=== PATIENT | female | born 1935 | race African-American/Black ===

== ENCOUNTER 2018-09-08 10:30 | Inpatient (IN) | payer MEDICARE, BC ==
[~2018-09-08] VITALS: Ht 167.6 cm; Wt 55.5 kg
[2018-09-08] MEDS ORDERED: ONDANSETRON HCL 4MG/2ML INJ IV STA (11:34)
[2018-09-08] MEDS ORDERED: SODIUM CHLORIDE 0.9% 1,000 ML IV ONE (11:34)
[2018-09-08 12:04] LABS: HEMATOCRIT. 21.1 % (36.0-48.0); MEAN CORPUSCULAR HEMOGLOBIN 25.2 pg (28.0-32.0); MEAN PLATELET VOLUME 6.8 fl (7.4-10.4); PLATELET 200 x1000/uL (130-400); RED BLOOD CELL COUNT 2.63 mill/uL (4.2-5.4); RED CELL DISTRIBUTION WIDTH 16.4 % (11.6-14.6)
[2018-09-08 12:07] LABS: HEMOGLOBIN. 6.6 g/dL (12.0-16.0)
[2018-09-08 12:11] LABS: PROTHROMBIN TIME 10.3 sec (9.1-11.1)
[2018-09-08 12:18] LABS: CHLORIDE 103 mEq/L (98-107)
[2018-09-08 12:34] LABS: NUCLEATED RED BLOOD CELLS 2 /100 WBC; PLATELET ESTIMATE NORMAL
[2018-09-08 13:53] LABS: CLARITY URINE CLEAR (CLEAR); COLOR URINE YELLOW (YELLOW); KETONES URINE NEGATIVE (NEGATIVE); LEUKOCYTE ESTERASE URINE NEGATIVE (NEGATIVE); NITRITE URINE NEGATIVE (NEGATIVE); OCCULT BLOOD URINE NEGATIVE (NEGATIVE); PH URINE 7.5 (4.5-8.0); PROTEIN URINE NEGATIVE (NEGATIVE); SPECIFIC GRAVITY URINE 1.011 (1.005-1.030); UROBILINOGEN URINE 0.2 E.U./dL (0.2-1.0)
[2018-09-08] MEDS ORDERED: FENTANYL CITRATE/PF 50MCG/ML 2ML VIAL IV NR (14:15)
[2018-09-08] MEDS ORDERED: SODIUM CHLORIDE 0.9% 1,000 ML IV SCH (17:26)
[2018-09-08] MEDS ORDERED: CLONIDINE 0.1MG TABLET PO PRN (17:30)
[2018-09-08] MEDS ORDERED: MAGNESIUM/ALUMINUM HYDROXIDE/SIMETHICONE 30ML UDC PO PRN (17:30)
[2018-09-08] MEDS ORDERED: HYDRALAZINE 20MG/ML VIAL IV PRN (17:30)
[2018-09-08] MEDS ORDERED: GUAIFENESIN 200MG/10ML SUGAR FREE UDC PO PRN (17:30)
[2018-09-08] MEDS ORDERED: DIPHENHYDRAMINE 50MG/ML VIAL IV PRN (17:30)
[2018-09-08] MEDS ORDERED: ONDANSETRON HCL 4MG/2ML INJ IV ONE (19:15)
[2018-09-08] MEDS ORDERED: FAMOTIDINE 20MG/2ML VIAL IV SCH (21:00)
[2018-09-09 05:11] LABS: BASOPHILS % 0.6 % (0.0-2.0); HEMATOCRIT. 23.7 % (36.0-48.0); HEMOGLOBIN. 7.8 g/dL (12.0-16.0); LYMPHOCYTES % 9.7 % (20.0-50.0); MEAN CORPUSCULAR HEMOGLOBIN 26.1 pg (28.0-32.0); MEAN CORPUSCULAR VOLUME 79.1 fL (81.0-99.0); MEAN PLATELET VOLUME 6.9 fl (7.4-10.4); MONOCYTES % 12.4 % (2.0-8.0); NEUTROPHILS % 77.3 % (40.0-76.0); PLATELET 181 x1000/uL (130-400); RED BLOOD CELL COUNT 2.99 mill/uL (4.2-5.4); RED CELL DISTRIBUTION WIDTH 15.7 % (11.6-14.6)
[2018-09-09 11:05] VITALS: BP 149/68
[2018-09-09 12:30] VITALS: BP 149/68
[2018-09-09] MEDS ORDERED: POTASSIUM CHLORIDE 20MEQ TABLET SR PO SCH (12:45)
[2018-09-09] MEDS ORDERED: IRON-1 MT (12:48)
[2018-09-09] MEDS ORDERED: CHOL50004 PO (12:51)
[2018-09-09] MEDS ORDERED: TRIA1TAB92 MT (12:51)
[2018-09-09] MEDS ORDERED: ASPI-864 PO (12:51)
[2018-09-09] MEDS ORDERED: ACET325C PO (12:51)
[2018-09-09] MEDS ORDERED: SODIUM CHLORIDE 0.9% 1,000 ML IV SCH (13:00)
[2018-09-09 13:44] LABS: PHOSPHORUS 3.6 mg/dL (2.5-4.9)
[2018-09-09] MEDS: FAMOTIDINE 20MG/2ML VIAL IV SCH (15:10)
[2018-09-09 16:00] VITALS: BP 172/58
[2018-09-09] MEDS ORDERED: TRAMADOL 50MG TABLET PO PRN (17:15)
[2018-09-09] MEDS: ACETAMINOPHEN 325MG TABLET PO PRN (17:39)
[2018-09-09] MEDS: FERROUS SULFATE 325MG TABLET PO SCH (17:39)
[2018-09-09] MEDS: HYDRALAZINE 20MG/ML VIAL IV PRN (17:40)
[2018-09-09 20:00] VITALS: BP 158/53
[2018-09-09] MEDS ORDERED: LORAZEPAM 2MG/ML CPJ IV PRN (21:00)
[2018-09-09] MEDS ORDERED: FAMOTIDINE 20MG/2ML VIAL IV SCH (21:00)
[2018-09-10] VITALS: BP 121/61
[2018-09-10 04:00] VITALS: BP 189/75
[2018-09-10] MEDS: HYDRALAZINE 20MG/ML VIAL IV PRN ×2 (04:15→12:26)
[2018-09-10] MEDS ORDERED: DILTIAZEM HCL 5MG/ML 5ML VIAL IV SCH (06:30)
[2018-09-10 06:45] LABS: CLARITY URINE CLEAR (CLEAR); COLOR URINE YELLOW (YELLOW); KETONES URINE NEGATIVE (NEGATIVE); LEUKOCYTE ESTERASE URINE 2+ (NEGATIVE); NITRITE URINE NEGATIVE (NEGATIVE); OCCULT BLOOD URINE NEGATIVE (NEGATIVE); PH URINE 6.5 (4.5-8.0); PROTEIN URINE 1+ (NEGATIVE)
[2018-09-10] MEDS ORDERED: ONDANSETRON HCL 4MG/2ML INJ IV PRN (07:15)
[2018-09-10 07:53] LABS: HEMATOCRIT. 28.3 % (36.0-48.0); MEAN CORPUSCULAR HEMOGLOBIN 25.4 pg (28.0-32.0); MEAN PLATELET VOLUME 7.8 fl (7.4-10.4); PLATELET 225 x1000/uL (130-400); RED BLOOD CELL COUNT 3.53 mill/uL (4.2-5.4); RED CELL DISTRIBUTION WIDTH 16.7 % (11.6-14.6)
[2018-09-10 08:00] VITALS: BP 173/75
[2018-09-10 08:13] LABS: T4 FREE 1.49 ng/dL (0.76-1.46)
[2018-09-10] MEDS ORDERED: METOPROLOL TARTRATE 50MG TABLET PO SCH (09:00)
[2018-09-10] MEDS: FERROUS SULFATE 325MG TABLET PO SCH ×3 (09:14→16:51)
[2018-09-10] MEDS: FAMOTIDINE 20MG/2ML VIAL IV SCH (09:14)
[2018-09-10] MEDS ORDERED: METOPROLOL TARTRATE 25MG TABLET PO NR (09:30)
[2018-09-10] MEDS ORDERED: POTASSIUM CHLORIDE INJ 40 MEQ in DEXT 5% WATER 250 ML IV SCH (10:00)
[2018-09-10 10:58] LABS: PLATELET ESTIMATE NORMAL
[2018-09-10 12:00] VITALS: BP 194/73
[2018-09-10] MEDS ORDERED: CEFTRIAXONE 1 G PREMIX 50 ML IV ONE (12:45)
[2018-09-10] MEDS: HYDRALAZINE HCL 50MG TABLET PO SCH ×2 (14:25→23:40)
[2018-09-10] MEDS ORDERED: CEFTRIAXONE 1 G PREMIX 50 ML IV SCH (15:00)
[2018-09-10 16:00] VITALS: BP 151/63
[2018-09-10 20:00] VITALS: BP 124/55
[2018-09-10] MEDS: METOPROLOL TARTRATE 50MG TABLET PO SCH (21:45)
[2018-09-11] VITALS: BP 144/49
[2018-09-11 04:00] VITALS: BP 139/48
[2018-09-11] MEDS: ACETAMINOPHEN 325MG TABLET PO PRN (06:23)
[2018-09-11] MEDS: HYDRALAZINE HCL 50MG TABLET PO SCH (06:23)
[2018-09-11 08:00] VITALS: BP 141/48
[2018-09-11] MEDS ORDERED: ENOXAPARIN 30MG/0.3ML SYR SUBCUT SCH (09:00)
[2018-09-11] MEDS: METOPROLOL TARTRATE 50MG TABLET PO SCH (09:00)
[2018-09-11] MEDS: FAMOTIDINE 20MG/2ML VIAL IV SCH (09:46)
[2018-09-11] MEDS: FERROUS SULFATE 325MG TABLET PO SCH ×2 (09:46→13:58)
[2018-09-11 12:00] VITALS: BP 121/38
[2018-09-11] MEDS ORDERED: POTASSIUM CHLORIDE 20MEQ TABLET SR PO NR (13:45)
[2018-09-11 14:59] VITALS: BP 121/38
== END 2018-09-11 16:30 | disposition home or self-care (01) | DRG 812 ==
LOC: ER 10:30 → 5WST 13:17 → EDBEDREQ 13:38 → ENRESERV 09-09 08:02 → ER 09-09 10:40
PROVIDERS: ADMIT Internal Medicine; ATTEND Internal Medicine
PROC: 30233N1 Transfusion of Nonautologous Red Blood Cells into Peripheral Vein, Percutaneous Approach (ICD-10-PCS; principal; 2018-09-08)
DX: D64.9 Anemia, unspecified (principal); N13.6 Pyonephrosis; Z68.1 Body mass index [BMI] 19.9 or less, adult; E44.0 Moderate protein-calorie malnutrition; I10 Essential (primary) hypertension; K57.90 Diverticulosis of intestine, part unspecified, without perforation or abscess without bleeding; E87.6 Hypokalemia; F41.9 Anxiety disorder, unspecified; I48.0 Paroxysmal atrial fibrillation; K58.1 Irritable bowel syndrome with constipation; I70.1 Atherosclerosis of renal artery; F32.9 Major depressive disorder, single episode, unspecified; N28.1 Cyst of kidney, acquired; Z79.899 Other long term (current) drug therapy; Z83.3 Family history of diabetes mellitus; Z85.038 Personal history of other malignant neoplasm of large intestine; Z86.010 Personal history of colon polyps; Z87.891 Personal history of nicotine dependence; Z90.710 Acquired absence of both cervix and uterus; Z95.5 Presence of coronary angioplasty implant and graft
CPT/HCPCS: 36415; 71045; 74018; 74176; 80048; 80051; 83540; 83550; 83735; 84100; 84439; 84443; 84480; 85379; 86850; 86900; 86920; 93005; 93306; 93970; 96374; 96376; 97162; 99291; J0360; J0696; J1650; J2060; J2405; J3010; J3480; J3490; J7030; J7060; P9016

== ENCOUNTER 2018-09-12 15:58 | Emergency (ER) | payer MEDICARE, BC ==
[~2018-09-12] VITALS: Ht 172.7 cm; Wt 59.0 kg
[~2018-09-12 15:58] MED LIST: ACET325C PO; ASPI-864 PO; CHOL50004 PO; IRON-1 MT; TRIA1TAB92 MT
[2018-09-12 16:11] VITALS: BP 144/51
== END 2018-09-12 17:06 | disposition left against medical advice (07) ==
LOC: ER 15:58
DX: R10.32 Left lower quadrant pain (principal); R11.10 Vomiting, unspecified; R00.0 Tachycardia, unspecified; Z79.82 Long term (current) use of aspirin; Z79.899 Other long term (current) drug therapy
CPT/HCPCS: 99283

== ENCOUNTER 2019-01-26 05:02 | Emergency (ER) | payer MEDICARE, BC ==
[~2019-01-26] VITALS: Ht 167.6 cm; Wt 54.0 kg
[2019-01-26] MEDS ORDERED: SODIUM CHLORIDE 0.9% 1,000 ML IV ONE (05:44)
[2019-01-26] MEDS ORDERED: ONDANSETRON HCL 4MG/2ML INJ IV STA (05:44)
[2019-01-26] MEDS ORDERED: MORPHINE SULFATE 4 MG/ML CPJ (NOT FOR IM USE) IV ONE (06:00)
[2019-01-26 06:22] LABS: BASOPHILS % 0.7 % (0.0-2.0); EOSINOPHILS % 1.1 % (0.0-5.0); HEMATOCRIT. 27.7 % (36.0-48.0); HEMOGLOBIN. 9.3 g/dL (12.0-16.0); MEAN CORPUSCULAR HEMOGLOBIN 31.8 pg (28.0-32.0); MEAN CORPUSCULAR VOLUME 94.4 fL (81.0-99.0); MONOCYTES % 8.6 % (2.0-8.0); NEUTROPHILS % 80.6 % (40.0-76.0); PLATELET 185 x1000/uL (130-400); RED BLOOD CELL COUNT 2.94 mill/uL (4.2-5.4); RED CELL DISTRIBUTION WIDTH 14.6 % (11.6-14.6)
[2019-01-26 06:52] LABS: CHLORIDE 105 mEq/L (98-107)
[2019-01-26] MEDS ORDERED: DIATR MEGLU/DIATRIZOATE SOLN 30ML ONE (06:55)
[2019-01-26 08:57] VITALS: BP 164/72
== END 2019-01-26 09:15 | disposition home or self-care (01) ==
LOC: ER 05:49
DX: R10.84 Generalized abdominal pain (principal); F17.210 Nicotine dependence, cigarettes, uncomplicated; Z85.038 Personal history of other malignant neoplasm of large intestine; Z90.49 Acquired absence of other specified parts of digestive tract; Z91.041 Radiographic dye allergy status
CPT/HCPCS: 36415; 74176; 80053; 83605; 83690; 85025; 96361; 96374; 96375; 99284; J2270; J2405; J7030; Q9963

== ENCOUNTER 2019-01-26 15:25 | Inpatient (IN) | payer MEDICARE, BC ==
[~2019-01-26] VITALS: Ht 168.9 cm; Wt 68.0 kg
[2019-01-26] MEDS ORDERED: MORPHINE SULFATE 4 MG/ML CPJ (NOT FOR IM USE) IV STA (16:01)
[2019-01-26] MEDS ORDERED: FAMOTIDINE 20MG/2ML VIAL IV STA (16:01)
[2019-01-26] MEDS ORDERED: ONDANSETRON HCL 4MG/2ML INJ IV STA (16:01)
[2019-01-26] MEDS ORDERED: HYDRALAZINE 20MG/ML VIAL IV ONE ×2 (16:15→18:45)
[2019-01-26 16:57] LABS: CHLORIDE 102 mEq/L (98-107); HEMATOCRIT. 33.6 % (36.0-48.0); HEMOGLOBIN. 11.4 g/dL (12.0-16.0); MEAN CORPUSCULAR HEMOGLOBIN 32.1 pg (28.0-32.0); MEAN CORPUSCULAR VOLUME 94.3 fL (81.0-99.0); MEAN PLATELET VOLUME 8.7 fl (7.4-10.4); PLATELET 223 x1000/uL (130-400); RED BLOOD CELL COUNT 3.56 mill/uL (4.2-5.4); RED CELL DISTRIBUTION WIDTH 14.4 % (11.6-14.6)
[2019-01-26 17:16] LABS: PLATELET ESTIMATE NORMAL
[2019-01-26 20:30] VITALS: BP 166/51
[2019-01-26] MEDS ORDERED: LORAZEPAM 0.5MG TABLET PO PRN (22:30)
[2019-01-26] MEDS ORDERED: GUAIFENESIN 200MG/10ML SUGAR FREE UDC PO PRN (22:30)
[2019-01-26] MEDS ORDERED: MAGNESIUM/ALUMINUM HYDROXIDE/SIMETHICONE 30ML UDC PO PRN (22:30)
[2019-01-26] MEDS ORDERED: ONDANSETRON HCL 4MG/2ML INJ IV PRN (22:30)
[2019-01-26] MEDS ORDERED: DIPHENHYDRAMINE 50MG/ML VIAL IV PRN (22:30)
[2019-01-26] MEDS ORDERED: ACETAMINOPHEN 325MG TABLET PO PRN (22:30)
[2019-01-26] MEDS ORDERED: CLONIDINE 0.1MG TABLET PO PRN (22:30)
[2019-01-26] MEDS ORDERED: HYDRALAZINE 20MG/ML VIAL IV PRN (22:45)
[2019-01-26] MEDS ORDERED: LEVOFLOXACIN 500MG PREMIX 100 ML IV NR (23:30)
[2019-01-26] MEDS: DEXT 5%/0.45% NACL 1000ML 1,000 ML IV SCH (23:45)
[2019-01-27] VITALS: BP 200/79
[2019-01-27] MEDS: HYDROMORPHONE HCL/PF 2MG/ML CPJ IV PRN ×4 (00:06→17:50)
[2019-01-27 04:00] VITALS: BP 170/78
[2019-01-27] MEDS: METOPROLOL TARTRATE 50MG TABLET PO SCH ×2 (04:33→21:00)
[2019-01-27] MEDS: FAMOTIDINE 20MG/2ML VIAL IV SCH (10:13)
[2019-01-27 12:00] VITALS: BP 92/55
[2019-01-27] MEDS: DEXT 5%/0.45% NACL 1000ML 1,000 ML IV SCH ×2 (12:07→17:51)
[2019-01-27 16:00] VITALS: BP 110/64
[2019-01-27 16:13] LABS: COLOR URINE YELLOW (YELLOW); KETONES URINE TRACE (NEGATIVE); LEUKOCYTE ESTERASE URINE NEGATIVE (NEGATIVE); NITRITE URINE NEGATIVE (NEGATIVE); OCCULT BLOOD URINE 1+ (NEGATIVE); PH URINE 6.5 (4.5-8.0); PROTEIN URINE 2+ (NEGATIVE); SPECIFIC GRAVITY URINE 1.017 (1.005-1.030); UROBILINOGEN URINE 0.2 E.U./dL (0.2-1.0)
[2019-01-27 16:16] LABS: CLARITY URINE SLIGHTLY HAZY (CLEAR)
[2019-01-27] MEDS: ENOXAPARIN 60MG/0.6ML SYR SUBCUT SCH (17:56)
[2019-01-27 20:00] VITALS: BP 105/61
[2019-01-27] MEDS ORDERED: LEVOFLOXACIN 250MG PREMIX 50 ML IV SCH (20:00)
[2019-01-28] VITALS (34 sets, daily range): BP systolic 76–139; BP diastolic 32–77
[2019-01-28] MEDS: HYDROMORPHONE HCL/PF 2MG/ML CPJ IV PRN ×2 (01:27→09:07)
[2019-01-28] MEDS: DEXT 5%/0.45% NACL 1000ML 1,000 ML IV SCH ×2 (01:28→10:51)
[2019-01-28] MEDS: ENOXAPARIN 60MG/0.6ML SYR SUBCUT SCH (05:41)
[2019-01-28] MEDS: METOPROLOL TARTRATE 50MG TABLET PO SCH (08:58)
[2019-01-28 10:46] LABS: CHLORIDE 102 mEq/L (98-107)
[2019-01-28 10:51] LABS: PHOSPHORUS 6.1 mg/dL (2.5-4.9)
[2019-01-28] MEDS: FAMOTIDINE 20MG/2ML VIAL IV SCH (10:55)
[2019-01-28 10:57] LABS: INR 1.5; PROTHROMBIN TIME 15.3 sec (9.6-11.0)
[2019-01-28] MEDS ORDERED: SODIUM CHLORIDE 0.9% 1000ML BAG (SEPSIS BOLUS) IV NR (14:30)
[2019-01-28 14:47] LABS: BG BASE EXCESS -18.3 mmol/L (-2.0-2.0); BG CARBOXYHEMOGLOBIN 0.2 % (0.5-1.5); BG DEOXYHEMOGLOBIN 0.3 % (0.0-5.0); BG FRACTION INSPIRED OXYGEN 100; BG HCO3 ACT 11.3 mmol/L (22.0-26.0); BG METHEMOGLOBIN 0.3 % (0.0-1.5); BG OXYGEN SATURATION 99.7 % (92.0-98.5); BG OXYHEMOGLOBIN 99.2 % (94.0-97.0); BG PCO2 42.7 mmHg (35.0-45.0); BG PH 7.042 (7.350-7.450); BG SAMPLE SITE RIGHT RADIAL; BG TOTAL HEMOGLOBIN 9.5 g/dL (12.0-18.0); BG VENT MODE MASK - NRB
[2019-01-28] MEDS ORDERED: SODIUM BICARBONATE 8.4% 1 MEQ/ML 50ML SYR IV NR (15:15)
[2019-01-28] MEDS ORDERED: ALBUMIN HUMAN 25GM/100ML (25%) IV NR (15:15)
[2019-01-28] MEDS ORDERED: ALBUMIN HUMAN 12.5G/250ML (5%) IV NR (15:30)
[2019-01-28] MEDS ORDERED: VANCOMYCIN 1 G PREMIX 200 ML IV ONE (16:15)
[2019-01-28] MEDS ORDERED: NOREPINEPHRINE 4MG/250ML PMX 250 ML IV ONE (16:45)
[2019-01-28] MEDS ORDERED: BUPIVACAINE HCL 0.5% (5MG/ML) 50ML ONE (16:49)
[2019-01-28] MEDS ORDERED: DEXTROSE 50% WATER 50ML SYRINGE IV NR (16:54)
[2019-01-28] MEDS ORDERED: ETOMIDATE 2MG/ML 10ML VIAL IV ONE (16:55)
[2019-01-28] MEDS ORDERED: SUCCINYLCHOLINE CHLORIDE 200MG/10ML IV ONE (16:56)
[2019-01-28] MEDS ORDERED: ROCURONIUM BROMIDE 10MG/ML VIAL 5ML IV ONE ×2 (16:56→18:18)
[2019-01-28 16:58] LABS: HEMOGLOBIN. 7.1 g/dL (12.0-16.0); MEAN CORPUSCULAR HEMOGLOBIN 31.2 pg (28.0-32.0); MEAN CORPUSCULAR VOLUME 96.3 fL (81.0-99.0); MEAN PLATELET VOLUME 9.7 fl (7.4-10.4); PLATELET 117 x1000/uL (130-400); RED BLOOD CELL COUNT 2.29 mill/uL (4.2-5.4); RED CELL DISTRIBUTION WIDTH 14.5 % (11.6-14.6)
[2019-01-28] MEDS ORDERED: FENTANYL CITRATE/PF 50MCG/ML 2ML VIAL ONE (16:58)
[2019-01-28] MEDS ORDERED: MIDAZOLAM HCL 2 MG/2 ML VIAL ONE ×2 (16:58→17:55)
[2019-01-28] MEDS ORDERED: PHENYLEPHRINE HCL 10 MG/ML 1ML (IV VIAL) IV ONE (16:59)
[2019-01-28 17:06] LABS: INR 1.9
[2019-01-28] MEDS: SODIUM BICARBONATE 150 MEQ in DEXTROSE 5% WATER 850 ML IV SCH (17:06)
[2019-01-28] MEDS: MEROPENEM 500 MG in SODIUM CHLORIDE 0.9% 50 ML IV SCH (17:15)
[2019-01-28] MEDS ORDERED: EPHEDRINE SULFATE 50MG/ML VIAL ONE (17:16)
[2019-01-28 17:24] LABS: BG BASE EXCESS -11.1 mmol/L (-2.0-2.0); BG CARBOXYHEMOGLOBIN 0.4 % (0.5-1.5); BG DEOXYHEMOGLOBIN 1.2 % (0.0-5.0); BG FRACTION INSPIRED OXYGEN 99.8; BG HCO3 ACT 17.3 mmol/L (22.0-26.0); BG METHEMOGLOBIN 0.5 % (0.0-1.5); BG OXYGEN SATURATION 98.8 % (92.0-98.5); BG OXYHEMOGLOBIN 97.9 % (94.0-97.0); BG PCO2 53.6 mmHg (35.0-45.0); BG PH 7.126 (7.350-7.450); BG PO2 170.5 mmHg (75.0-100.0); BG SAMPLE SITE LEFT BRACHIAL; BG TOTAL HEMOGLOBIN 6.8 g/dL (12.0-18.0); BG VENT MODE MASK - NRB
[2019-01-28 17:30] LABS: NUCLEATED RED BLOOD CELLS 1 /100 WBC; PLATELET ESTIMATE DECREASED
[2019-01-28] MEDS ORDERED: SODIUM BICARBONATE 8.4% 1 MEQ/ML 50ML SYR IV ONE ×2 (17:56→17:57)
[2019-01-28] MEDS ORDERED: VANCOMYCIN 1 G PREMIX 200 ML IV SCH (18:00)
[2019-01-28 18:40] LABS: BG BASE EXCESS -4.8 mmol/L (-2.0-2.0); BG CARBOXYHEMOGLOBIN 0.3 % (0.5-1.5); BG DEOXYHEMOGLOBIN 11.1 % (0.0-5.0); BG FRACTION INSPIRED OXYGEN 100; BG HCO3 ACT 21.6 mmol/L (22.0-26.0); BG METHEMOGLOBIN 0.9 % (0.0-1.5); BG OXYGEN SATURATION 88.8 % (92.0-98.5); BG OXYHEMOGLOBIN 87.7 % (94.0-97.0); BG PCO2 47.5 mmHg (35.0-45.0); BG PH 7.276 (7.350-7.450); BG PO2 58.5 mmHg (75.0-100.0); BG SAMPLE SITE OTHER; BG TOTAL HEMOGLOBIN 6.2 g/dL (12.0-18.0); BG VENT MODE VENT - A/C
[2019-01-28 19:08] LABS: BG CARBOXYHEMOGLOBIN 0.3 % (0.5-1.5); BG DEOXYHEMOGLOBIN 0.8 % (0.0-5.0); BG FRACTION INSPIRED OXYGEN 100; BG HCO3 ACT 16.7 mmol/L (22.0-26.0); BG METHEMOGLOBIN 0.4 % (0.0-1.5); BG OXYGEN SATURATION 99.2 % (92.0-98.5); BG OXYHEMOGLOBIN 98.5 % (94.0-97.0); BG PCO2 35.1 mmHg (35.0-45.0); BG PH 7.294 (7.350-7.450); BG PO2 278.2 mmHg (75.0-100.0); BG SAMPLE SITE RIGHT RADIAL; BG TOTAL HEMOGLOBIN 9.1 g/dL (12.0-18.0); BG VENT MODE VENT - A/C
[2019-01-28 20:31] LABS: PHOSPHORUS 5.5 mg/dL (2.5-4.9)
[2019-01-28 20:32] LABS: BG BASE EXCESS -10.1 mmol/L (-2.0-2.0); BG CARBOXYHEMOGLOBIN 0.3 % (0.5-1.5); BG DEOXYHEMOGLOBIN 0.9 % (0.0-5.0); BG FRACTION INSPIRED OXYGEN 100; BG HCO3 ACT 17.1 mmol/L (22.0-26.0); BG METHEMOGLOBIN 0.4 % (0.0-1.5); BG OXYGEN SATURATION 99.1 % (92.0-98.5); BG OXYHEMOGLOBIN 98.4 % (94.0-97.0); BG PCO2 42.8 mmHg (35.0-45.0); BG PH 7.219 (7.350-7.450); BG PO2 198.2 mmHg (75.0-100.0); BG SAMPLE SITE LEFT BRACHIAL; BG TIDAL VOLUME(mL) 450 mL; BG TOTAL HEMOGLOBIN 10.9 g/dL (12.0-18.0); BG VENT MODE VENT - A/C; BG VENT RATE 12 set
[2019-01-28] MEDS ORDERED: PROPOFOL 10MG/ML 100ML 100 ML IV PRN (21:15)
[2019-01-29] VITALS (112 sets, daily range): BP systolic 0–184; BP diastolic 0–281
[2019-01-29] MEDS: MEROPENEM 500 MG in SODIUM CHLORIDE 0.9% 50 ML IV SCH ×2 (04:34→17:23)
[2019-01-29] MEDS: HYDROMORPHONE HCL/PF 2MG/ML CPJ IV PRN (04:51)
[2019-01-29 05:29] LABS: CHLORIDE 105 mEq/L (98-107)
[2019-01-29 05:36] LABS: HEMATOCRIT. 42.1 % (36.0-48.0); HEMOGLOBIN. 14.4 g/dL (12.0-16.0); MEAN CORPUSCULAR HEMOGLOBIN 30.1 pg (28.0-32.0); MEAN CORPUSCULAR VOLUME 88.1 fL (81.0-99.0); MEAN PLATELET VOLUME 10.2 fl (7.4-10.4); PLATELET 97 x1000/uL (130-400); RED BLOOD CELL COUNT 4.78 mill/uL (4.2-5.4); RED CELL DISTRIBUTION WIDTH 16.7 % (11.6-14.6)
[2019-01-29 05:38] LABS: PHOSPHORUS 4.6 mg/dL (2.5-4.9)
[2019-01-29 05:57] LABS: HEPATITIS B SURFACE ANTIGEN NEGATIVE
[2019-01-29 05:59] LABS: CREATINE KINASE 6417 IU/L (26-192)
[2019-01-29] MEDS ORDERED: ENOXAPARIN 60MG/0.6ML SYR SUBCUT SCH (06:00)
[2019-01-29 06:27] LABS: HEPATITIS A AB IGM NEGATIVE (NEGATIVE)
[2019-01-29] MEDS: SODIUM BICARBONATE 150 MEQ in DEXTROSE 5% WATER 850 ML IV SCH ×2 (06:36→17:24)
[2019-01-29 07:40] LABS: BG BASE EXCESS -7.2 mmol/L (-2.0-2.0); BG CARBOXYHEMOGLOBIN 1.8 % (0.5-1.5); BG DEOXYHEMOGLOBIN 3.5 % (0.0-5.0); BG FRACTION INSPIRED OXYGEN 50; BG HCO3 ACT 18.6 mmol/L (22.0-26.0); BG METHEMOGLOBIN 0.4 % (0.0-1.5); BG OXYGEN SATURATION 96.4 % (92.0-98.5); BG OXYHEMOGLOBIN 94.3 % (94.0-97.0); BG PCO2 38.5 mmHg (35.0-45.0); BG PH 7.302 (7.350-7.450); BG PO2 83.5 mmHg (75.0-100.0); BG SAMPLE SITE A-LINE; BG TIDAL VOLUME(mL) 450 mL; BG VENT MODE VENT - A/C; BG VENT RATE 16 set
[2019-01-29 07:51] LABS: NUCLEATED RED BLOOD CELLS 1 /100 WBC; PLATELET ESTIMATE DECREASED
[2019-01-29] MEDS ORDERED: DILTIAZEM HCL 5MG/ML 5ML VIAL IV ONE (08:00)
[2019-01-29] MEDS: FAMOTIDINE 20MG/2ML VIAL IV SCH (08:03)
[2019-01-29] MEDS ORDERED: ALBUMIN HUMAN 25GM/100ML (25%) IV NR (08:15)
[2019-01-29] MEDS ORDERED: SODIUM BICARBONATE 8.4% 1 MEQ/ML 50ML SYR IV NR (08:15)
[2019-01-29] MEDS ORDERED: IPRATROPIUM/ALBUTEROL 0.5-3(2.5)MG/3ML NEB HHN PRN (09:15)
[2019-01-29] MEDS: DILTIAZEM HCL 125 MG in DEXT 5% WATER 100 ML IV PRN (09:35)
[2019-01-29] MEDS ORDERED: VASOPRESSIN 10 UNIT in SODIUM CHLORIDE 0.9% 99.5 ML IV PRN (10:45)
[2019-01-29] MEDS ORDERED: PHENYLEPHRINE 40 MG in DEXT 5% WATER 246 ML IV PRN (10:45)
[2019-01-29 11:59] LABS: HEMATOCRIT 37.9 % (36.0-48.0); HEMOGLOBIN 13.2 g/dL (12.0-16.0)
[2019-01-29] MEDS: IPRATROPIUM/ALBUTEROL 0.5-3(2.5)MG/3ML NEB HHN SCH ×2 (16:31→20:12)
[2019-01-29] MEDS: FENTANYL CITRATE/PF 500 MCG in SODIUM CHLORIDE 0.9% 40 ML IV PRN (19:59)
[2019-01-29] MEDS ORDERED: VANCOMYCIN 500 MG PREMIX 100 ML IV SCH (21:00)
[2019-01-29] MEDS ORDERED: LEVOFLOXACIN 250MG PREMIX 50 ML IV SCH (21:00)
[2019-01-29] MEDS: NOREPINEPHRINE 16 MG in DEXT 5% WATER 234 ML IV PRN (21:07)
[2019-01-30] VITALS (103 sets, daily range): BP systolic 60–193; BP diastolic 29–290
[2019-01-30] MEDS: SODIUM BICARBONATE 150 MEQ in DEXTROSE 5% WATER 850 ML IV SCH (01:00)
[2019-01-30] MEDS: IPRATROPIUM/ALBUTEROL 0.5-3(2.5)MG/3ML NEB HHN SCH ×2 (01:17→20:23)
[2019-01-30] MEDS: MEROPENEM 500 MG in SODIUM CHLORIDE 0.9% 50 ML IV SCH (05:20)
[2019-01-30 06:00] LABS: CHLORIDE 95 mEq/L (98-107)
[2019-01-30] MEDS: DILTIAZEM HCL 125 MG in DEXT 5% WATER 100 ML IV PRN (06:04)
[2019-01-30] MEDS: FENTANYL CITRATE/PF 500 MCG in SODIUM CHLORIDE 0.9% 40 ML IV PRN ×2 (06:04→20:42)
[2019-01-30 06:06] LABS: PHOSPHORUS 5.1 mg/dL (2.5-4.9)
[2019-01-30 06:19] LABS: HEMOGLOBIN. 12.3 g/dL (12.0-16.0); MEAN CORPUSCULAR HEMOGLOBIN 30.3 pg (28.0-32.0); MEAN PLATELET VOLUME 10.4 fl (7.4-10.4); PLATELET 89 x1000/uL (130-400); RED BLOOD CELL COUNT 4.05 mill/uL (4.2-5.4); RED CELL DISTRIBUTION WIDTH 17.5 % (11.6-14.6)
[2019-01-30 06:22] LABS: HEMATOCRIT. 35.7 % (36.0-48.0)
[2019-01-30 06:34] LABS: CREATINE KINASE 3722 IU/L (26-192)
[2019-01-30 07:31] LABS: NUCLEATED RED BLOOD CELLS 17 /100 WBC; PLATELET ESTIMATE DECREASED
[2019-01-30 07:34] LABS: BG BASE EXCESS -3.2 mmol/L (-2.0-2.0); BG CARBOXYHEMOGLOBIN 0.9 % (0.5-1.5); BG DEOXYHEMOGLOBIN 6.1 % (0.0-5.0); BG FRACTION INSPIRED OXYGEN 50; BG METHEMOGLOBIN 0.5 % (0.0-1.5); BG OXYGEN SATURATION 93.8 % (92.0-98.5); BG OXYHEMOGLOBIN 92.5 % (94.0-97.0); BG PCO2 30.2 mmHg (35.0-45.0); BG PH 7.438 (7.350-7.450); BG PO2 69.7 mmHg (75.0-100.0); BG SAMPLE SITE A-LINE; BG TIDAL VOLUME(mL) 450 mL; BG VENT MODE VENT - A/C; BG VENT RATE 18 set
[2019-01-30] MEDS ORDERED: ALBUMIN HUMAN 25GM/100ML (25%) IV NR (08:24)
[2019-01-30] MEDS: DEXT 5%/0.9% NACL 1,000 ML IV SCH (08:45)
[2019-01-30] MEDS: FAMOTIDINE 20MG/2ML VIAL IV SCH (09:00)
[2019-01-30] MEDS ORDERED: HEPARIN 1000 UNITS/ML 10ML ONE (09:03)
[2019-01-30] MEDS ORDERED: LIDOCAINE HCL 1% 20ML VIAL (Pyxis) INJ ONE (09:03)
[2019-01-30] MEDS: PANTOPRAZOLE SODIUM 40 MG/VIAL IV SCH (13:17)
[2019-01-30] MEDS ORDERED: VANCOMYCIN 500 MG PREMIX 100 ML IV SCH (18:00)
[2019-01-30] MEDS: MEROPENEM 500MG in NORMAL SALINE 50ML IV SCH (19:31)
[2019-01-30] MEDS: NOREPINEPHRINE 16 MG in DEXT 5% WATER 234 ML IV PRN (20:42)
[2019-01-31] VITALS (123 sets, daily range): BP systolic 35–289; BP diastolic 15–278
[2019-01-31] MEDS: IPRATROPIUM/ALBUTEROL 0.5-3(2.5)MG/3ML NEB HHN SCH ×4 (01:45→20:02)
[2019-01-31] MEDS: DEXT 5%/0.9% NACL 1,000 ML IV SCH (02:59)
[2019-01-31 05:38] LABS: HEMATOCRIT. 33.3 % (36.0-48.0); HEMOGLOBIN. 10.9 g/dL (12.0-16.0); MEAN CORPUSCULAR HEMOGLOBIN 30.4 pg (28.0-32.0); MEAN CORPUSCULAR VOLUME 92.5 fL (81.0-99.0); RED BLOOD CELL COUNT 3.59 mill/uL (4.2-5.4)
[2019-01-31 05:40] LABS: PHOSPHORUS 6.4 mg/dL (2.5-4.9)
[2019-01-31] MEDS ORDERED: DEXTROSE 50% WATER 50ML SYRINGE IV SCH (05:56)
[2019-01-31] MEDS ORDERED: DEXTROSE 50% WATER 50ML SYRINGE IV ONE (05:56)
[2019-01-31] MEDS ORDERED: PANTOPRAZOLE SODIUM 40 MG/VIAL IV SCH (09:00)
[2019-01-31] MEDS ORDERED: DEXTROSE 10% WATER 500 ML IV ONE (09:00)
[2019-01-31] MEDS: PANTOPRAZOLE SODIUM 40 MG/VIAL IV SCH (09:04)
[2019-01-31] MEDS: BLOOD SUGAR DIAGNOSTIC STRIP TEST SCH ×4 (09:05→20:31)
[2019-01-31] MEDS: DEXTROSE 50% WATER 50ML SYRINGE IV PRN ×4 (09:19→21:19)
[2019-01-31 09:21] LABS: NUCLEATED RED BLOOD CELLS 24 /100 WBC
[2019-01-31 09:22] LABS: PLATELET ESTIMATE MARKEDLY DECREASED
[2019-01-31 09:25] LABS: MEAN PLATELET VOLUME 10.1 fl (7.4-10.4); PLATELET 31 x1000/uL (130-400)
[2019-01-31 11:14] LABS: BG BASE EXCESS -16.6 mmol/L (-2.0-2.0); BG CARBOXYHEMOGLOBIN 0.6 % (0.5-1.5); BG DEOXYHEMOGLOBIN 3.2 % (0.0-5.0); BG FRACTION INSPIRED OXYGEN 50; BG METHEMOGLOBIN 0.3 % (0.0-1.5); BG OXYGEN SATURATION 96.8 % (92.0-98.5); BG OXYHEMOGLOBIN 95.9 % (94.0-97.0); BG PCO2 39.3 mmHg (35.0-45.0); BG PH 7.104 (7.350-7.450); BG PO2 113.8 mmHg (75.0-100.0); BG SAMPLE SITE A-LINE; BG TIDAL VOLUME(mL) 450 mL; BG TOTAL HEMOGLOBIN 10.6 g/dL (12.0-18.0); BG VENT MODE VENT - A/C; BG VENT RATE 16 set
[2019-01-31] MEDS ORDERED: SODIUM BICARBONATE 8.4% 1 MEQ/ML 50ML SYR IV SCH (11:30)
[2019-01-31] MEDS ORDERED: SODIUM BICARBONATE 8.4% 1 MEQ/ML 50ML SYR IV ONE (11:30)
[2019-01-31 13:19] LABS: BG BASE EXCESS -13.4 mmol/L (-2.0-2.0); BG CARBOXYHEMOGLOBIN 0.8 % (0.5-1.5); BG DEOXYHEMOGLOBIN 4.2 % (0.0-5.0); BG FRACTION INSPIRED OXYGEN 50; BG HCO3 ACT 13.4 mmol/L (22.0-26.0); BG METHEMOGLOBIN 0.5 % (0.0-1.5); BG OXYGEN SATURATION 95.7 % (92.0-98.5); BG OXYHEMOGLOBIN 94.5 % (94.0-97.0); BG PH 7.213 (7.350-7.450); BG PO2 91.1 mmHg (75.0-100.0); BG SAMPLE SITE A-LINE; BG TIDAL VOLUME(mL) 450 mL; BG TOTAL HEMOGLOBIN 10.2 g/dL (12.0-18.0); BG VENT MODE VENT - A/C; BG VENT RATE 22 set
[2019-01-31] MEDS: SODIUM BICARBONATE 100 MEQ in DEXT 10% WATER 1,000 ML IV SCH (15:17)
[2019-01-31] MEDS: NOREPINEPHRINE 16 MG in DEXT 5% WATER 234 ML IV PRN (15:31)
[2019-01-31] MEDS: MEROPENEM 500MG in NORMAL SALINE 50ML IV SCH (17:25)
[2019-01-31] MEDS: FENTANYL CITRATE/PF 500 MCG in SODIUM CHLORIDE 0.9% 40 ML IV PRN (18:20)
[2019-02-01] VITALS (231 sets, daily range): BP systolic 51–176; BP diastolic 23–92
[2019-02-01] MEDS: BLOOD SUGAR DIAGNOSTIC STRIP TEST SCH ×3 (00:55→08:00)
[2019-02-01] MEDS: DEXTROSE 50% WATER 50ML SYRINGE IV PRN ×3 (00:55→09:10)
[2019-02-01] MEDS: IPRATROPIUM/ALBUTEROL 0.5-3(2.5)MG/3ML NEB HHN SCH ×3 (01:51→15:23)
[2019-02-01] MEDS: NOREPINEPHRINE 16 MG in DEXT 5% WATER 234 ML IV PRN (07:30)
[2019-02-01 07:47] LABS: HEMATOCRIT. 30.1 % (36.0-48.0); HEMOGLOBIN. 9.3 g/dL (12.0-16.0); MEAN CORPUSCULAR HEMOGLOBIN 30.2 pg (28.0-32.0); MEAN CORPUSCULAR VOLUME 97.9 fL (81.0-99.0); MEAN PLATELET VOLUME 9.1 fl (7.4-10.4); RED BLOOD CELL COUNT 3.08 mill/uL (4.2-5.4); RED CELL DISTRIBUTION WIDTH 19.8 % (11.6-14.6)
[2019-02-01 08:14] LABS: PLATELET 15 x1000/uL (130-400)
[2019-02-01 08:14] LABS: BG BASE EXCESS -18.3 mmol/L (-2.0-2.0); BG CARBOXYHEMOGLOBIN 0.7 % (0.5-1.5); BG DEOXYHEMOGLOBIN 24.8 % (0.0-5.0); BG METHEMOGLOBIN 0.3 % (0.0-1.5); BG OXYGEN SATURATION 74.9 % (92.0-98.5); BG OXYHEMOGLOBIN 74.2 % (94.0-97.0); BG PH 7.059 (7.350-7.450); BG PO2 47.5 mmHg (75.0-100.0); BG SAMPLE SITE RIGHT BRACHIAL; BG TIDAL VOLUME(mL) 450 mL; BG TOTAL HEMOGLOBIN 10.1 g/dL (12.0-18.0); BG VENT MODE VENT - A/C; BG VENT RATE 22 set
[2019-02-01 08:27] LABS: PHOSPHORUS 9.5 mg/dL (2.5-4.9)
[2019-02-01] MEDS: PANTOPRAZOLE SODIUM 40 MG/VIAL IV SCH (09:05)
[2019-02-01] MEDS: SODIUM BICARBONATE 8.4% 1 MEQ/ML 50ML SYR IV NR ×2 (09:06→11:29)
[2019-02-01 09:31] LABS: NUCLEATED RED BLOOD CELLS 30 /100 WBC
[2019-02-01 09:32] LABS: PLATELET ESTIMATE MARKEDLY DECREASED
[2019-02-01] MEDS ORDERED: SODIUM BICARBONATE 8.4% 1 MEQ/ML 50ML SYR IV NR (11:00)
[2019-02-01] MEDS: SODIUM BICARBONATE 100 MEQ in DEXT 10% WATER 1,000 ML IV SCH (11:29)
== END 2019-02-01 17:45 | disposition expired | DRG 853 ==
LOC: ER 15:26 → 6WST 16:27 → ENRESERV 20:00 → 6WST 20:18 → CVICU 01-28 14:43
PROVIDERS: ADMIT Internal Medicine; ATTEND Internal Medicine
PROC: 0D9670Z Drainage of Stomach with Drainage Device, Via Natural or Artificial Opening (ICD-10-PCS; 2019-01-27)
PROC: 0DB80ZZ Excision of Small Intestine, Open Approach (ICD-10-PCS; principal; 2019-01-28)
PROC: 5A1945Z Respiratory Ventilation, 24-96 Consecutive Hours (ICD-10-PCS; 2019-01-28)
PROC: 0BH17EZ Insertion of Endotracheal Airway into Trachea, Via Natural or Artificial Opening (ICD-10-PCS; 2019-01-28)
PROC: 30233N1 Transfusion of Nonautologous Red Blood Cells into Peripheral Vein, Percutaneous Approach (ICD-10-PCS; 2019-01-28)
PROC: 05HY33Z Insertion of Infusion Device into Upper Vein, Percutaneous Approach (ICD-10-PCS; 2019-01-28)
PROC: B54MZZA Ultrasonography of Right Upper Extremity Veins, Guidance (ICD-10-PCS; 2019-01-28)
PROC: 02HV33Z Insertion of Infusion Device into Superior Vena Cava, Percutaneous Approach (ICD-10-PCS; 2019-01-30)
PROC: B548ZZA Ultrasonography of Superior Vena Cava, Guidance (ICD-10-PCS; 2019-01-30)
PROC: 5A1D70Z Performance of Urinary Filtration, Intermittent, Less than 6 Hours Per Day (ICD-10-PCS; 2019-01-30)
PROC: 5A1D70Z Performance of Urinary Filtration, Intermittent, Less than 6 Hours Per Day (ICD-10-PCS; 2019-01-31)
DX: A41.9 Sepsis, unspecified organism (principal); J96.01 Acute respiratory failure with hypoxia; K55.059 Acute (reversible) ischemia of intestine, part and extent unspecified; G93.41 Metabolic encephalopathy; N17.0 Acute kidney failure with tubular necrosis; J18.9 Pneumonia, unspecified organism; K72.00 Acute and subacute hepatic failure without coma; R65.21 Severe sepsis with septic shock; K55.029 Acute infarction of small intestine, extent unspecified; E87.2 Acidosis; R18.8 Other ascites; N13.30 Unspecified hydronephrosis; G81.94 Hemiplegia, unspecified affecting left nondominant side; I48.92 Unspecified atrial flutter; J44.0 Chronic obstructive pulmonary disease with (acute) lower respiratory infection; J98.11 Atelectasis; M62.82 Rhabdomyolysis; N13.2 Hydronephrosis with renal and ureteral calculous obstruction; K56.699 Other intestinal obstruction unspecified as to partial versus complete obstruction; R64 Cachexia; E27.8 Other specified disorders of adrenal gland; N28.1 Cyst of kidney, acquired; D64.9 Anemia, unspecified; I11.9 Hypertensive heart disease without heart failure; K52.9 Noninfective gastroenteritis and colitis, unspecified; K57.30 Diverticulosis of large intestine without perforation or abscess without bleeding; D69.6 Thrombocytopenia, unspecified; E11.22 Type 2 diabetes mellitus with diabetic chronic kidney disease; E11.649 Type 2 diabetes mellitus with hypoglycemia without coma; E83.51 Hypocalcemia; F17.210 Nicotine dependence, cigarettes, uncomplicated; I13.10 Hypertensive heart and chronic kidney disease without heart failure, with stage 1 through stage 4 chronic kidney disease, or unspecified chronic kidney disease; F32.9 Major depressive disorder, single episode, unspecified; I27.20 Pulmonary hypertension, unspecified; I48.0 Paroxysmal atrial fibrillation; I70.0 Atherosclerosis of aorta; I70.1 Atherosclerosis of renal artery; I95.3 Hypotension of hemodialysis; K56.41 Fecal impaction; I34.0 Nonrheumatic mitral (valve) insufficiency; I35.8 Other nonrheumatic aortic valve disorders; N18.9 Chronic kidney disease, unspecified; Z51.5 Encounter for palliative care; Z82.49 Family history of ischemic heart disease and other diseases of the circulatory system; Z83.3 Family history of diabetes mellitus; Z85.048 Personal history of other malignant neoplasm of rectum, rectosigmoid junction, and anus; Z90.710 Acquired absence of both cervix and uterus; Z91.041 Radiographic dye allergy status; Z95.828 Presence of other vascular implants and grafts; Z79.82 Long term (current) use of aspirin; Z79.899 Other long term (current) drug therapy; Z79.1 Long term (current) use of non-steroidal anti-inflammatories (NSAID)
CPT/HCPCS: 36415; 36556; 36600; 70551; 71045; 74176; 76700; 76937; 80048; 80076; 80202; 81003; 82248; 82375; 82550; 82805; 82962; 83605; 83735; 84100; 84478; 84484; 85014; 85018; 85379; 86705; 86709; 86803; 86850; 86900; 86920; 87070; 87340; 88307; 93005; 93306; 93970; 94002; 94003; 94640; 96361; 96374; 96375; 99284; 99285; C1725; C1752; C9113; J0330; J0360; J1170; J1644; J1650; J1956; J2185; J2250; J2270; J2370; J2405; J3010; J3370; J3490; J7030; J7042; J7050; J7060; J7070; J7620; P9016; P9041; P9047; Q9963; A4315